=== PATIENT | male | born 1985 | race American Indian/Alaskan Native ===

== ENCOUNTER 2017-03-12 17:54 | Emergency (ER) | payer SELFPAY ==
[2017-03-12] MEDS ORDERED: MOTRIN PO ONE (18:30)
--- NOTE | 2017-03-12 18:31 | Emergency Department Report ---
Chief Complaint: Urogenital-Male Stated Complaint: SWOLLEN TESTICLE/BACK, GROIN,STOMACH PAIN Time Seen by Provider: 03/12/17 18:27 - HPI History of Present Illness: PT c/o testicular pain and swelling since the weekend. PT states his girlfriend has gonorrhea - ROS Review of Systems: + abd pain + low back pain - Exam Vital Signs: Vital Signs 03/12/17 18:21 Temperature 100.5 F H Pulse Rate 68 Respiratory 16 Rate Blood Pressure 132/78 O2 Sat by Pulse 100 Oximetry Physical Exam: pt appears uncomfortable no cva tenderness danielle MSE screening note: Focused history and physical exam performed. Due to findings the following was ordered: meds, labs, us ED Disposition for MSE Condition: Stable
[2017-03-12 20:20] LABS: Bilirubin,Urine NEG (Negative); Blood,Urine NEG (Negative); Ketones,Urine 20 mg/dL (Negative); Leukocyte Esterase,Urine NEG (Negative); Mucus,Urine 3+ /HPF; Nitrite,Urine NEG (Negative); Protein,Urine <15 mg/dL mg/dL (Negative); Urobilinogen,Urine < 2.0 mg/dL (<2.0)
--- NOTE | 2017-03-12 20:26 | Ultrasound Report ---
FINAL REPORT PROCEDURE: US TESTICULAR DOPPLER COMP TECHNIQUE: Real-time toledo-scale and color flow Doppler sonography in multiple planes of the scrotum, testicles, and epididymes was performed. Velocity spectral waveform analysis Doppler imaging of the arterial inflow and venous outflow of the testicles was performed with image documentation. CPT 33838 and 38739 HISTORY: Pain and swelling to left testicle. COMPARISON: No prior studies are available for comparison. FINDINGS: RIGHT TESTICLE: Size: 3.9 x 1.6 x 2.4 centimeters. Appearance: Normal size and echotexture . Arterial blood flow: Normal spectral waveforms, flow velocities and color flow images.. Venous blood flow: Normal spectral waveforms and color flow images. Right epididymis: Normal size and echotexture . Hydrocele: Obsw-qv-ofopbffq hydrocele. LEFT TESTICLE Size: 3.7 x 1.9 x 2.8 centimeters. Appearance: Normal size and echotexture . Arterial blood flow: Normal spectral waveforms, flow velocities and color flow images.. Venous blood flow: Normal spectral waveforms and color flow images. Leftepididymis: 3 x 2 x 5 millimeter epididymal head cyst. Left epididymis is mildly enlarged and heterogeneous with increased flow. Hydrocele: Lxhi-rb-sdhyxyik hydrocele. IMPRESSION: Normal testicles bilaterally with normal flow. Mildly enlarged heterogeneous left epididymis with increased flow, consider epididymitis. Left epididymal head cyst. Mild to moderate hydroceles bilaterally.
[2017-03-12] MEDS ORDERED: ROCEPHIN IM ONE (21:51)
[2017-03-12] MEDS ORDERED: XYLOCAINE 1% MPF 5 mL INFILTRATI ONE (21:51)
[2017-03-12] MEDS ORDERED: ZITHROMAX PO ONE (21:52)
[2017-03-12] MEDS ORDERED: ZOFRAN ODT PO ONE (21:53)
[2017-03-12] MEDS ORDERED: TYLENOL #3 PO ONE (21:53)
--- NOTE | 2017-03-12 21:58 | Emergency Department Report ---
ED Male HPI - General Chief complaint: Urogenital-Male Stated complaint: SWOLLEN TESTICLE/BACK, GROIN,STOMACH PAIN Time Seen by Provider: 03/12/17 18:27 Source: patient Mode of arrival: Ambulatory Limitations: No Limitations - History of Present Illness Initial comments: 31-year-old male 31-year-old male with past medical history Chlamydia and gonorrhea several times presents with complaint of 10 days of left-sided testicular discomfort and dysuria. States his girlfriend told him she was recently diagnosed with chlamydia. Patient has had 2-3 unprotected sex partners in the last 3-6 months. Patient is awake alert and oriented 3 nontoxic-appearing denies abdominal pain nausea or vomiting denies fevers or chills. MD Complaint: testicle swelling, dysuria Onset/Timin -: days(s) Location: penis, left testicle Severity: mild Severity scale (0 -10): 4 Quality: burning Improves with: none Worsens with: none discharge, swelling - Related Data Previous Rx's Medication Instructions Recorded Last Taken Type Naproxen [Naprosyn TAB] 500 mg PO BID PRN #20 tablet 03/12/17 Unknown Rx Allergies Allergy/AdvReac Type Severity Reaction Status Date / Time No Known Allergies Allergy Unverified 03/12/17 18:28 ED Review of Systems ROS: Stated complaint: SWOLLEN TESTICLE/BACK, GROIN,STOMACH PAIN Other details as noted in HPI Constitutional: denies: chills, fever Eyes: denies: eye pain, eye discharge, vision change ENT: denies: ear pain, throat pain Respiratory: denies: cough, shortness of breath, wheezing Cardiovascular: denies: chest pain, palpitations Endocrine: no symptoms reported Gastrointestinal: denies: abdominal pain, nausea, diarrhea Genitourinary: dysuria. denies: urgency Musculoskeletal: denies: back pain, joint swelling, arthralgia Skin: denies: rash, lesions Neurological: denies: headache, weakness, paresthesias Psychiatric: denies: anxiety, depression Hematological/Lymphatic: denies: easy bleeding, easy bruising ED Past Medical Hx - Past Medical History Previous Medical History?: No - Surgical History Past Surgical History?: No - Social History Smoking Status: Current Every Day Smoker Substance Use Type: Alcohol - Medications Home Medications: Home Medications Medication Instructions Recorded Confirmed Last Taken Type Naproxen [Naprosyn TAB] 500 mg PO BID PRN #20 tablet 03/12/17 Unknown Rx ED Physical Exam - General Limitations: No Limitations General appearance: alert, in no apparent distress - Head Head exam: Present: atraumatic, normocephalic - Eye Eye exam: Present: normal appearance, PERRL, EOMI - ENT ENT exam: Present: mucous membranes moist - Neck Neck exam: Present: normal inspection, full ROM - Respiratory Respiratory exam: Present: normal lung sounds bilaterally. Absent: respiratory distress - Cardiovascular Cardiovascular Exam: Present: regular rate, normal rhythm. Absent: systolic murmur, diastolic murmur, rubs, gallop - GI/Abdominal GI/Abdominal exam: Present: soft, normal bowel sounds - Rectal Rectal exam: Present: deferred - exam: Present: testicular tenderness, scrotal swelling External exam: Present: normal external exam, swelling - Expanded Exam Expanded exam: Testicular Tenderness: Left, Testicular Swelling: Left, Epididymal Tenderness: Left (+ phren sign) - Extremities Exam Extremities exam: Present: normal inspection, full ROM - Back Exam Back exam: Present: normal inspection - Neurological Exam Neurological exam: Present: alert, oriented X3, CN II-XII intact, normal gait - Psychiatric Psychiatric exam: Present: normal affect, normal mood - Skin Skin exam: Present: warm, dry, intact, normal color. Absent: rash ED Course Vital Signs 03/12/17 18:21 Temperature 100.5 F H Pulse Rate 68 Respiratory 16 Rate Blood Pressure 132/78 O2 Sat by Pulse 100 Oximetry ED Medical Decision Making - Medical Decision Making A/P: Chlamydia gonorrhea, epididymitis 1-treat patient empirically with ceftriaxone and azithromycin as per [email or web address]. Chlamydia and gonorrhea cultures sent 2-naproxen when necessary for pain 3-pt advised to return to the ED for any worsening symptoms after treatment. I advised him to only have protected sex and to abstain from sex for the next several days 4-f/u primary care Critical care attestation.: If time is entered above; I have spent that time in minutes in the direct care of this critically ill patient, excluding procedure time. ED Disposition Clinical Impression: Acute epididymitis Disposition: DC- TO HOME OR SELFCARE Is pt being admited?: No Does the pt Need Aspirin: No Condition: Stable Instructions: Epididymitis (ED) Prescriptions: Naproxen [Naprosyn TAB] 500 mg PO BID PRN #20 tablet PRN Reason: Pain Referrals: [facility] [Outside] - 3-5 Days [facility] [Outside] - 3-5 Days Forms: STI Treatment and Prevention, Work/School Release Form(ED) Time of Disposition: 22:00
[2017-03-12 22:21] VITALS: BP 149/87
== END 2017-03-12 22:14 | disposition home or self-care (01) ==
LOC: ED 17:54
DX: N45.1 Epididymitis (principal); F17.210 Nicotine dependence, cigarettes, uncomplicated
CPT/HCPCS: 81001; 87591; 93975; 96372; 99284; J0696; Q0162